=== PATIENT | male | born 1950 | race Caucasian/White ===

== ENCOUNTER → 2020-12-31 01:50 | Outpatient (CLI) | payer MEDICARE, SELFPAY ==
[2020-12-31 18:23] LABS: SARS-CoV-2 RNA PCR Negative
== END ==
PROVIDERS: PCP Internal Medicine; Visit Provider Internal Medicine
DX: Z20.822 Contact with and (suspected) exposure to COVID-19 (principal); R05.9 Cough, unspecified
CPT/HCPCS: C9803; U0003; U0005

== ENCOUNTER 2021-07-18 18:37 | Emergency (ER) | payer MEDICARE, SELFPAY ==
--- NOTE | ~2021-07-18 | XR_ITS ---
EXAMINATION: XR hand LT min 3V DATE: 07/18/2021 19:13 INDICATION: Left hand third digit deformity. Fall. TECHNIQUE: 3 views of left hand were obtained. COMPARISON: None. FINDINGS: There is dorsal and ulnar sided dislocation of third middle phalanx with respect to the pro ximal phalanx. There are bone fragments at the palmar aspect of third proximal interphalangeal joint. There is mild osteoarthritis of first carpometacarpal joint and some of the metacarpophalangeal join ts and interphalangeal joints. IMPRESSION: 1. Dislocation of third proximal interphalangeal joint. 2. Bone fragments at palmar aspect of third proximal interphalangeal joint, likely fracture fragments from the base of third middle phalanx. Reviewed, dictated and finalized at location A. IMPRESSION: 1. Dislocation of third proximal interphalangeal joint. 2. Bone fragments at palmar aspect of third proximal interphalangeal joint, lik fina fracture fragments from the base of third middle phalanx.
--- NOTE | ~2021-07-18 | XR_ITS ---
EXAMINATION: XR hand LT 2V DATE: 07/18/2021 20:51 INDICATION: Left third finger dislocation status post reduction. TECHNIQUE: 2 views of left hand were obtained. COMPARISON: Left hand radiographs at 7:09 PM FINDINGS: Bone alignment is normal. There are bone fragments palmar to third proximal interphalangeal joint. There is mild osteoarthritis of first metatarsophalangeal joint and many of the metacarpophal angeal joints and interphalangeal joints. IMPRESSION: 1. Bone fragments palmar to third proximal interphalangeal joint, likely displaced chip fracture frag ments. 2. Polyarticular osteoarthritis. Reviewed, dictated and finalized at location A. IMPRESSION: 1. Bone fragments palmar to third proximal interphalangeal joint, likely displa bolivar chip fracture fragments. 2. Polyarticular osteoarthritis.
[2021-07-18 18:55] VITALS: BP 115/78; PULSE 85; RESP 14; TEMP 36.4; O2SAT 96
--- NOTE | 2021-07-18 20:51 | ED.UPPEXIN ---
HPI - Extremity Injury (Upper) General Chief Complaint: Extremity Injury, Upper Stated Complaint: fall Time Seen by Provider: 07/18/21 20:05 History of Present Illness HPI narrative: Patient was walking his dog when the dog pulled hard on the leash, he felt to the ground and realize his third and fourth digits of his left hand were dislocated, he was able to reduce the ring finger but not the middle finger. Denies any numbness or tingling, endorses some pain, denies trauma anywhere else. Related Data Allergies Allergy/AdvReac Type Severity Reaction Status Date / Time No Known Allergies Allergy Unverified 10/28/12 09:06 Review of Systems Review of Systems: CONST: No fever. HEAD: No head trauma NECK: no trauma C/V: No chest pain RESP: No difficulty breathing GI: No abd pain : No dysuria. M/S: Left finger pain SKIN: No rash. NEURO: [No focal numbness or weakness] PSYCH: [No depression] All systems reviewed & are unremarkable except as noted in HPI and below PMFSH Past Medical History Medical History (Updated 07/19/21 @ 06:05 by Jcakelyn Scott MD) Shoulder dislocation Social History Social History (Updated 07/19/21 @ 06:04 by Jackelyn Scott MD) Smoking status: Never smoker Exam Narrative: EXAMINATION OF ORGAN SYSTEMS/BODY AREAS: Constitutional: Vital signs per nursing GENERAL:[No acute distress, non-toxic appearing.] HEAD: Normal with no signs of head trauma. EYES: EOMI, conjunctiva normal ENT: Hearing grossly intact LUNGS: Nonlabored breathing. HEART: [Regular rate and rhythm] ABD: [Soft], [tender to palpation] EXT: Normal range of motion SKIN: [No rashes or lesions.] NEURO: [Alert and oriented x 3. No gross focal sensory or strength deficits.] PSYCH: Normal affect Course Course Emergency Course: 70-year-old male presents here with trauma/fall with dislocation of his third and fourth fingers, vital signs stable, exam shows dislocation of the third finger, x-ray confirms this with some bone fragments, digital block and reduction performed with alignment, patient placed in splint and given follow-up to orthopedics. Vital Signs Vital signs: Vital Signs Temperature 97.6 F 07/18/21 18:55 Pulse Rate 85 07/18/21 18:55 Respiratory Rate 14 07/18/21 18:55 Blood Pressure 115/78 07/18/21 18:55 Pulse Oximetry 96 07/18/21 18:55 Temperature 97.6 F 07/18/21 18:55 Pulse Rate 68 07/18/21 21:24 Respiratory Rate 16 07/18/21 21:24 Blood Pressure 137/86 07/18/21 21:24 Pulse Oximetry 96 07/18/21 21:24 Procedures Nerve Block Nerve Block 1: Local Anesthetic: lidocaine 1% and with epi Amount of anesthesia used (mL): 3 Side: left Nerve Blocks: digital Procedure Successful: Yes Patient Tolerated Procedure: well Complications: none Orthopedic Fracture Reduction Fracture #1: Side: left Fracture Reduction Location: finger Analgesia: nerve block Pre-Procedure Neuro Vascular Exam: normal Technique: traction/counter-traction Post Reduction X-rays Demonstrate: anatomical reduction Post-reduction neuro exam: intact Post-reduction vascular exam: intact Splint Applied: Yes Patient Tolerated Procedure: well Discharge Plan Discharge Clinical Impression: Dislocation of finger Patient Disposition: Home, Self-Care Condition: Improved Instructions: Antibiotic Form, Closed Reduction (ED), Finger Dislocation (ED) Follow-up/Referrals: Vishal,MD Gregory [Primary Care Provider] - Jean Salgado MD [Physician] -
[2021-07-18 21:24] VITALS: BP 137/86; PULSE 68; RESP 16; O2SAT 96
== END 2021-07-18 21:26 | disposition home or self-care (01) ==
LOC: ANHED 21:08
PROVIDERS: Emergency Provider Emergency Medicine; PCP Internal Medicine
DX: S63.283A Dislocation of proximal interphalangeal joint of left middle finger, initial encounter (principal); M19.042 Primary osteoarthritis, left hand; W18.39XA Other fall on same level, initial encounter; Y93.K1 Activity, walking an animal
CPT/HCPCS: 26770; 73120; 73130; 99285

== ENCOUNTER → 2021-10-07 00:17 | Outpatient (CLI) | payer MEDICARE, SELFPAY ==
[2021-10-07 11:20] LABS: SARS-CoV-2 RNA PCR Negative
== END ==
PROVIDERS: PCP Internal Medicine; Visit Provider Internal Medicine
DX: Z20.822 Contact with and (suspected) exposure to COVID-19 (principal)
CPT/HCPCS: C9803; U0003; U0005

== ENCOUNTER 2023-10-12 01:26 | Day surgery (SDC) | payer MEDICARE, SELFPAY ==
[2023-09-20 14:00] VITALS: BMI 20.3
[2023-10-12 12:00] VITALS: BP 105/62; PULSE 63; RESP 18; TEMP 36.1; O2SAT 97
[2023-10-12] MEDS: LACTATED RINGERS 1,000 ML 150 ML IV CONT (12:02)
--- NOTE | 2023-10-12 12:16 | P.PNAN_ITS ---
Anes - Initial Pre Proc Eval Procedure: Operation Date: 10/12/23 13:00 Proposed Procedures p Screening Colonoscopy - Amador Carmichael MD Date/Time: 10/12/23 12:16 Surgeon: Amador Carmichael MD Pre Op Diagnosis: neoplasm screening Patient Data Age: 73 Gender: M Height: 1.83 m Weight: 71.4 kg Last Vital Signs Temp 36.1 C L 10/12/23 12:00 Pulse 63 10/12/23 12:00 Resp 18 10/12/23 12:00 BP 105/62 10/12/23 12:00 Pulse Ox 97 10/12/23 12:00 Allergies Allergy/AdvReac Type Severity Reaction Status Date / Time house dust Allergy Unknown unknown Verified 10/12/23 11:59 mold Allergy Unknown unknown Verified 10/12/23 11:59 pollen extracts Allergy Unknown unknown Verified 10/12/23 11:59 Home Medications Medication Instructions Recorded Confirmed Type albuterol sulfate 90 mcg/actuation 1 inh inhalation Q4H PRN Shortness 07/23/21 09/20/23 History aerosol inhaler Of Breath Or Wheezing fluticasone propionate 50 1 spray intranasal DAILY 07/23/21 09/20/23 History mcg/actuation nasal spray,suspension montelukast 10 mg tablet 10 mg PO DAILY 07/23/21 09/20/23 History fluticasone fur. 200 mcg-umeclid 1 inh inhalation DAILY 09/20/23 09/20/23 History 62.5 mcg-vilant 25 mcg inhalat.powder (Trelegy Ellipta) Patient hx anesthesia problems: none Family hx anesthesia problems: none Results Review: All pre-operative results and documents have been reviewed as part of the pre- operative evaluation. [facility] Past Medical History Medical History History of stress test (~06/2021) Shoulder dislocation Surgical History Surgical History History of hernia repair Family History Family History Father FH: kidney cancer Social History Social History Smoking packs per day: 1 Smoking cigarettes per day: 20.0 Years smoked: 10 Smoking pack-years: 10.00 Smoking status: Former smoker Tobacco type: cigarettes Alcohol intake: current Drinks per week: 7 Alcohol use details: BEER Substance use: never Substance use type: does not use Living arrangements: with family Spiritual care concerns: No Anes - Eval Final PreProcedure Day of Procedure 10/12/23 12:16 Patient weight: normal Heart: regular rate and rhythm Lungs: clear to auscultation Airway: Mallampati scale class II Neurological: alert and oriented Last oral intake: >/= 8 hours ASA classification: II Emergent: no Anesthetic plan: proceed Anesthesia type and monitoring: general GIVS and standard monitoring Results Review: All pre-operative results and documents have been reviewed as part of the pre- operative evaluation. Informed Consent: The patient's anesthetic plan and its attendant risks and benefits were discussed with the patient/family/POA. Questions were solicited and answers provided to the satisfaction of the patient/family/POA.
--- NOTE | 2023-10-12 12:18 | PM.HPGS ---
History of Present Illness History of Present Illness Consent: Risks, benefits, and alternatives have been discussed and questions answered. Patient agrees to proceed with procedure. Chief complaint: neoplasm screening Narrative: Kameron Lopez Jr. is a 73 year old male here for screening colonoscopy Review of Systems Review of Systems: All systems reviewed & are unremarkable except as noted in HPI and below PMFSH Past Medical History Medical History (Updated 10/12/23 @ 12:19 by Amador Carmichael MD) Colon cancer screening History of stress test (~06/2021) Shoulder dislocation Surgical History Surgical History History of hernia repair Family History Family History Father FH: kidney cancer Social History Social History Smoking packs per day: 1 Smoking cigarettes per day: 20.0 Years smoked: 10 Smoking pack-years: 10.00 Smoking status: Former smoker Tobacco type: cigarettes Alcohol intake: current Drinks per week: 7 Alcohol use details: BEER Substance use: never Substance use type: does not use Living arrangements: with family Spiritual care concerns: No Meds Home Medications and Allergies Home Medications Medication Instructions Recorded Confirmed Type albuterol sulfate 90 mcg/actuation 1 inh inhalation Q4H PRN Shortness 07/23/21 09/20/23 History aerosol inhaler Of Breath Or Wheezing fluticasone propionate 50 1 spray intranasal DAILY 07/23/21 09/20/23 History mcg/actuation nasal spray,suspension montelukast 10 mg tablet 10 mg PO DAILY 07/23/21 09/20/23 History fluticasone fur. 200 mcg-umeclid 1 inh inhalation DAILY 09/20/23 09/20/23 History 62.5 mcg-vilant 25 mcg inhalat.powder (Trelegy Ellipta) Allergies Allergy/AdvReac Type Severity Reaction Status Date / Time house dust Allergy Unknown unknown Verified 10/12/23 11:59 mold Allergy Unknown unknown Verified 10/12/23 11:59 pollen extracts Allergy Unknown unknown Verified 10/12/23 11:59 Vital Signs Vital Signs - 24 hr 10/12/23 12:00 Temperature 97.0 F L Pulse Rate 63 Respiratory Rate 18 Blood Pressure 105/62 Pulse Oximetry 97 Exam Const: General: comfortable and no acute distress HENMT: Face/Nose/Sinus: Normal nares present Eyes: General: appearance normal, both eyes and all related structures Neck: Neck: no JVD Resp: Auscultation: clear to auscultation bilaterally Cardio: Rate: regular rate Rhythm: regular rhythm GI: Inspection: non-distended GI Palp: Yes Soft to palpation Skin: General skin exam: normal color Neuro: General: gait normal Speech: normal speech Extrem: General: normal to inspection Psych: Mental Status: mental status grossly normal Assessment and Plan Assessment and plan (1) Colon cancer screening: Code(s): Z12.11 - Encounter for screening for malignant neoplasm of colon Status: Acute Assessment and Plan: colonoscopy
[2023-10-12 12:34] VITALS: BP 103/64; PULSE 64; RESP 24; O2SAT 98
[2023-10-12 12:44] VITALS: BP 100/61; PULSE 66; RESP 20; O2SAT 99
[2023-10-12 12:54] VITALS: BP 109/67; PULSE 64; RESP 23; O2SAT 100
== END 2023-10-12 13:00 | disposition home or self-care (01) ==
PROVIDERS: PCP Internal Medicine; Visit Provider Internal Medicine Gastroenterology
PROC: 0DJD8ZZ Inspection of Lower Intestinal Tract, Via Natural or Artificial Opening Endoscopic (ICD-10-PCS; CPT 45378; principal; 2023-10-12 13:00)
DX: Z12.11 Encounter for screening for malignant neoplasm of colon (principal); K57.30 Diverticulosis of large intestine without perforation or abscess without bleeding; K64.8 Other hemorrhoids; Z79.51 Long term (current) use of inhaled steroids; Z87.891 Personal history of nicotine dependence
CPT/HCPCS: G0121; J2704; J7120